=== PATIENT | male | born 1985 | race Caucasian/White ===

== ENCOUNTER 2024-10-15 10:41 | Inpatient (IN) | payer OTHER ==
[2024-10-15] MEDS ORDERED: NICOTINE POLACRILEX 2 MG GUM BUC PRN (12:41)
[2024-10-15] MEDS ORDERED: POLYETHYLENE GLYCOL (HEALTHYLAX) 3350 17 GM PACKET PO PRN (12:41)
[2024-10-15] MEDS ORDERED: ACETAMINOPHEN 325 MG TABLET (FP) PO PRN (12:41)
[2024-10-15] MEDS ORDERED: BENZOCAINE/MENTHOL (CHLORASEPTIC ) LOZENGE MM PRN (12:41)
[2024-10-15] MEDS ORDERED: guaiFENesin 600 MG TABLET.ER (FP) PO PRN (12:41)
[2024-10-15] MEDS ORDERED: NICOTINE POLACRILEX 2 MG LOZENGE BC PRN (12:41)
[2024-10-15] MEDS ORDERED: NALOXONE (NARCAN) HCL 4 MG/0.1 ML SPRAY NS PRN (12:41)
[2024-10-15] MEDS ORDERED: BISMUTH SUBSALICYLATE 262 MG/15 ML BTL PO PRN (12:41)
[2024-10-15] MEDS ORDERED: IBUPROFEN 400 MG TABLET (FP) PO PRN (12:41)
[2024-10-15] MEDS ORDERED: MAGNESIUM HYDROX 2400MG/30ML ORAL SUSPENSION 30 ML CUP PO PRN (12:41)
[2024-10-15] MEDS ORDERED: DICYCLOMINE HCL 10 MG CAPSULE PO PRN (12:41)
[2024-10-15] MEDS ORDERED: LOPERAMIDE HCL 2 MG CAPSULE PO PRN (12:41)
[2024-10-15] MEDS ORDERED: BENZONATATE 200 MG CAPSULE PO PRN (12:41)
[2024-10-15 12:49] VITALS: BMI 20.7
[2024-10-15] MEDS: hydrOXYzine PAMOATE 25 MG CAPSULE (FP) PO PRN (19:32)
[2024-10-15] MEDS: IBUPROFEN 600 MG TABLET (FP) PO PRN (19:32)
[2024-10-15] MEDS: METHOCARBAMOL 500 MG TABLET PO PRN (22:37)
[2024-10-15] MEDS: THIAMINE 100 MG TABLET PO SCH (22:37)
[2024-10-15] MEDS: MELATONIN 5 MG TABLETS PO SCH (22:37)
[2024-10-16] MEDS ORDERED: chlordiazePOXIDE HCL 25 MG CAPSULE PO PRN (09:03)
[2024-10-16] MEDS: chlordiazePOXIDE HCL 25 MG CAPSULE PO SCH (10:14)
[2024-10-16] MEDS: NALTREXONE HCL 50 MG TABLET PO SCH (10:14)
[2024-10-16] MEDS: PRENATAL VITAMINS W/ FOLIC ACID TABLET (FP) PO SCH (10:14)
[2024-10-16] MEDS: ONDANSETRON *ODT* 4 MG TABLET SL PRN (11:55)
[2024-10-16] MEDS: MAG HYDROX/AL HYDROX/SIMETH 30 ML UNIT-DOSE CUP PO PRN (14:03)
[2024-10-16] MEDS: amLODIPine BESYLATE 10 MG TABLET (FP) PO SCH (15:33)
[2024-10-16] MEDS ORDERED: MIRTAZAPINE 15 MG TABLET (FP) PO SCH (22:00)
[2024-10-16] MEDS: SUVOREXANT 10 MG TABLET PO PRN (22:12)
[2024-10-17] MEDS: HYDROCHLOROTHIAZIDE 12.5 MG CAPSULE (FP) PO SCH (10:14)
[2024-10-17] MEDS: CYPROHEPTADINE HCL 4 MG TABLET PO SCH (16:57)
[2024-10-18] MEDS: chlordiazePOXIDE HCL 25 MG CAPSULE PO SCH (05:59)
[2024-10-18 08:55] VITALS: RESP 18
[2024-10-18 17:06] VITALS: BP 104/87; PULSE 128; TEMP 98
[2024-10-19] MEDS ORDERED: chlordiazePOXIDE HCL 10 MG CAPSULE PO PRN
[2024-10-19] MEDS ORDERED: chlordiazePOXIDE HCL 10 MG CAPSULE PO SCH (05:00)
[2024-10-20] MEDS ORDERED: chlordiazePOXIDE HCL 10 MG CAPSULE PO SCH (05:00)
[2024-10-21] MEDS ORDERED: chlordiazePOXIDE HCL 10 MG CAPSULE PO ONE (05:00)
== END 2024-10-18 16:40 | disposition home or self-care (01) | DRG 775 ==
LOC: YASAS 10:41 → Y6N 13:32
PROVIDERS: ADMIT Allergy & Immunology; ATTEND Allergy & Immunology
PROC: HZ2ZZZZ Detoxification Services for Substance Abuse Treatment (ICD-10-PCS; principal; 2024-10-15)
DX: F10.230 Alcohol dependence with withdrawal, uncomplicated (principal); F12.20 Cannabis dependence, uncomplicated; F17.210 Nicotine dependence, cigarettes, uncomplicated; F10.280 Alcohol dependence with alcohol-induced anxiety disorder; F10.282 Alcohol dependence with alcohol-induced sleep disorder; F10.24 Alcohol dependence with alcohol-induced mood disorder; I10 Essential (primary) hypertension; Z59.00 Homelessness unspecified
CPT/HCPCS: 80305; 80307; 93005; 93010; Q0162